=== PATIENT | male | born 1960 | race African-American/Black ===

== ENCOUNTER → 2021-12-25 16:51 | Outpatient (CLI) | payer SELFPAY ==
--- NOTE | ~2021-12-25 | XR_ITS ---
EXAMINATION:XR cervical spine 4-5V DATE: 12/25/2021 17:23 INDICATION: Neck pain TECHNIQUE: AP, lateral in flexion and extension, and odontoid views of the cervical spine are provide d. COMPARISON: None FINDINGS: Alignment is normal. There is no laxity with flexion or extension. The odontoid is intact. No fracture is identified. The vertebral body heights are normal. There is moderate loss of intervert ebral disc space height at C6-7 and mild loss of disc space height at C3-4 and C5-6. Small degenerati ve osteophytes project from the anterior endplates of multiple vertebral bodies. 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 Prevertebral soft tissues are normal. IMPRESSION: 1. Mild cervical spondylosis without acute findings. Reviewed, dictated and finalized at location A.
== END ==
PROVIDERS: PCP Chiropractor; Visit Provider Chiropractor
DX: M54.2 Cervicalgia (principal); M47.812 Spondylosis without myelopathy or radiculopathy, cervical region
CPT/HCPCS: 72050